=== PATIENT | male | born 1975 | race Caucasian/White ===

== ENCOUNTER 2019-06-01 16:07 | Inpatient (IN) | payer OTHER ==
[~2019-06-01] VITALS: Ht 190.5 cm; Wt 111.4 kg
[~2019-06-01 16:07] MED LIST: ADDERALL 30 MG30 MG PO; ANDROGEL5 GM; LANOXIN125 MCG PO; PRINIVIL10 MG PO
[2019-06-01 16:36] VITALS: BP 142/84
[2019-06-01 16:38] LABS: BASOPHILS 0.1 % (0-2); EOSINOPHILS 0.9 % (0-7); HEMATOCRIT 42.9 % (42.0-54.0); HEMOGLOBIN 15.1 g/dL (13.5-17.5); IMMATURE GRANULOCYTES 0.3 % (0-5); LYMPHOCYTES 31.2 % (15-50); MCH 32.4 pg (26.0-34.0); MCHC 35.2 g/dL (31.0-37.0); MCV 92.1 fL (80.0-100.0); MEAN PLATELET VOLUME 9.1 fL (7.4-10.4); MONOCYTES 10.4 % (2-11); NEUTROPHILS 57.1 % (40-80); PLATELET COUNT 271 10x3/uL (130-400); RBC 4.66 10x6/uL (4.20-6.10); RDW 12.9 % (11.5-14.5); WBC 7.5 10x3/uL (4.8-10.8)
[2019-06-01 16:58] LABS: ALBUMIN 3.8 g/dL (3.4-5.0); ALKALINE PHOSPHATASE 64 U/L (46-116); ALT (SGPT) 41 U/L (10-68); BILIRUBIN - TOTAL 0.17 mg/dL (0.2-1.3); CALC OSMOLALITY 282 mosm/kg (275-300); CALCIUM 8.9 mg/dL (8.5-10.1); CARBON DIOXIDE 28.4 mmol/L (21.0-32.0); CHLORIDE - SERUM 104 mmol/L (98-107); CREATININE - SERUM 1.2 mg/dL (0.6-1.3); GLUCOSE 112 mg/dL (74-106); POTASSIUM - SERUM 3.8 mmol/L (3.5-5.1); PROTEIN - SERUM 7.2 g/dL (6.4-8.2); SODIUM 141 mmol/L (136-145); UREA NITROGEN 14 mg/dL (7-18); eGFR NON AFRICAN AMERICAN 70 mL/min (90-120)
[2019-06-01 17:07] VITALS: BP 111/87
[2019-06-01 17:08] LABS: CKMB 2.1 U/L (0.0-3.6); CREATINE KINASE 235 UL (21-232); PRO BNP 13 pg/mL (0-125); TROPONIN-I < 0.017 ng/mL (0.000-0.060)
[2019-06-01 17:38] VITALS: BP 91/56
--- NOTE | 2019-06-01 17:38 | NUR ---
RESTING IN BED. CONT TO C/O "CHEST PRESSURE, HEAVY, NOT REALLY PAIN" VSS
[2019-06-01 18:53] VITALS: BP 123/75
--- NOTE | 2019-06-01 18:55 | NUR ---
REPORT TO BOBBI ELIAS BY SBAR FORMAT
--- NOTE | 2019-06-01 19:04 | NUR ---
TRANSPORTED TO ROOM #2123, CONDITION STABLE
--- NOTE | 2019-06-01 19:31 | NUR ---
RECIEVED TO ROOM 2122 FROM ER VIA . PT A&O. RESPERATIONS EVEN ON RA. VITALS STABLE. IV TO LEFT ARM SL, IV SITE CLEAN AND DRY. HISTORY AND MED REC OBTAINED. PLACED ON TELEMETRY, 63 SR PER MT. OFFERED PT SANDWHICH TRAY AND DRINK, PT DECLINED SANDWHICH BUT REQUESTED [place]. CURRENTLY DENIES PAIN OR NEEDS, BED LOW, CL IN REACH.
[2019-06-01 19:47] VITALS: BP 116/51; Ht 190.5 cm; Wt 111.4 kg
[2019-06-01 20:00] VITALS: BP 116/51
--- NOTE | 2019-06-01 20:23 | NUR ---
PTS MOTHER AT BED SIDE, BROUGHT PT FOOD.
--- NOTE | 2019-06-01 21:47 | NUR ---
ICE CREAM GIVEN AT PT REQUEST, PT CURRENTLY DENIES PAIN OR OTHER NEEDS.
--- NOTE | 2019-06-01 22:46 | NUR ---
MORPOHINE 6 MG GIVEN FOR C/O PAIN TO CHEST. RATES PAIN AT A 7 ON PAIN SCALE.
[2019-06-01 23:30] LABS: CKMB 1.8 U/L (0.0-3.6); CREATINE KINASE 209 UL (21-232); TROPONIN-I < 0.017 ng/mL (0.000-0.060)
[2019-06-02] VITALS: BP 112/66
--- NOTE | 2019-06-02 01:52 | NUR ---
RESTING WITH EYES CLOSED, RESPERATIONS EVEN, NO S/S DISTRESS NOTED.
[2019-06-02 04:00] VITALS: BP 128/51
[2019-06-02 05:52] LABS: CKMB 1.6 U/L (0.0-3.6); CREATINE KINASE 188 UL (21-232)
[2019-06-02 06:17] LABS: TROPONIN-I < 0.017 ng/mL (0.000-0.060)
--- NOTE | 2019-06-02 08:05 | NUR ---
GAVE 6MG OF MORPHINE FOR PAIN LEVEL OF 7/10. PT IN BED, WATCHING TV, A/O X4, RESP EVEN AND NONLABORED ON RA. LT AC IV SL. PT DENIES ANY OTHER NEEDS AT THIS TIME, CALL LIGHT IN REACH, FAMILY AT BEDSIDE, NAD NOTED, WILL CONITNUE TO MONIOTOR.
--- NOTE | 2019-06-02 08:18 | NUR ---
PT TO CT VIA WHEELCHAIR.
--- NOTE | 2019-06-02 08:33 | NUR ---
PT BACK FROM CT, RATES PAIN LEVEL 7/10. PT DENIES ANY OTHER NEEDS AT THIS TIME. CALL LIGHT IN REACH. NAD NOTED, WILL CONTINUE TO MONITOR.
[2019-06-02 10:52] VITALS: BP 120/65
--- NOTE | 2019-06-02 12:48 | NUR ---
GAVE 6MG OF MORPHINE FOR PAIN LEVEL OF 7/10. PT DENIES ANY OTHER NEEDS AT THIS TIME. CALL LIGHT IN REACH, NAD NOTED, WILL CONTINUE TO MONITOR.
[2019-06-02 13:48] VITALS: BP 114/72
--- NOTE | 2019-06-02 14:09 | NUR ---
CALLED ALMAS Gao APN WITH CARDIOLOGY, INFORMED HER THAT A CTA OF THE CHEST WAS ALREADY DONE THIS AM AND THE RESULTS WERE NEGATIVE. ASKED ALMAS IF PT COULD HAVE SOMETHING TO EAT, ALMAS STATED TO GO AHEAD AND GET PT SOMETHING TO EAT.
--- NOTE | 2019-06-02 15:52 | NUR ---
WENT TO CHECK ON PT TO SEE IF HE STILL HAD CHEST PAIN. PT RATED PAIN LEVEL TO CHEST 7/10, WAS GOING TO GIVE HIM ANOTHER NITRO AND PT STATED GIVE ME THE MORHINE INSTEAD. GAVE 6MG OF MORPHINE AT THIS TIME. PT DENIES ANY OTHER NEEDS AT THIS TIME. CALL LIGHT IN REACH, NAD NOTED.
[2019-06-02 16:10] VITALS: BP 110/60
--- NOTE | 2019-06-02 19:07 | NUR ---
RECEIVED BEDSIDE REPORT. PATIENT IS ALERT AND ORIENTED, RESTING COMFORTABLY IN BED. RESPIRATIONS ARE EVEN AND UNLABORED. NO S/S OF DISTRESS. NO C/O PAIN. CALL LIGHT WITHIN REACH. WILL CPOC.
[2019-06-02 20:00] VITALS: BP 109/62
[2019-06-03] VITALS: BP 115/66
[2019-06-03 04:30] VITALS: BP 110/48
--- NOTE | 2019-06-03 07:32 | NUR ---
NOTIFIED PT ABOUT NEEDING TO BE NPO FOR STRESS TEST TODAY THIS AFTERNOON. PT VERBALIZED UNDERSTANDING. PT DENIES ANY NEEDS AT THIS TIME. CALL LIGHT IN REACH, NAD NOTED, WILL CONTINUE TO MONITOR.
[2019-06-03 08:00] VITALS: BP 130/70
[2019-06-03 12:00] VITALS: BP 144/74
--- NOTE | 2019-06-03 14:11 | NUR ---
PT RESTING COMFORTABLY WITH EYES CLOSED, FAMILY AT BEDSIDE, CALL LIGHT IN REACH, NAD NOTED.
--- NOTE | 2019-06-03 14:59 | NUR ---
PT TO NUCLEAR MED FOR STRESS TEST VIA WHEELCHAIR, NAD NOTED.
--- NOTE | 2019-06-03 15:13 | MORECARE ---
CASE MANAGEMENT DISCHARGE SUMMARY PATIENT: RO LEIJA UNIT: [id number] ADM DATE: 06/02/19 AGE: 43 : 75 SEX: M ROOM/BED: D.2123 AUTHOR: ANGÉLICA CHACON PHYSICIAN: REFERRING PHYSICIAN: MIHIR KENDRICK M.D. DATE OF SERVICE: 06/03/19 Discharge Plan Patient Name: RO LEIJ[facility] [facility] 1975 Planned Disposition: Home Anticipated Discharge Date: Discharge Date: Expected LOS: Initial Reviewer: [email or web address] Initial Review Date: 06/03/2019 Generated: 06/03/19 4:13 pm Patient Name: RO LEIJA Page [id number] at 1513 All edits/amendments must be made on the electronic document DICTATION DATE: 06/03/191512 SALES DEVELOPMENT ASSOCIATE: KIM 06/03/191512 RPT#: [id number] DC DATE: STATUS: ADM IN [facility] [address] [place] [address] END OF REPORT
--- NOTE | 2019-06-03 15:22 | MORECARE ---
CASE MANAGEMENT DISCHARGE SUMMARY PATIENT: RO LEIJA UNIT: [id number] ADM DATE: 06/02/19 AGE: 43 : 75 SEX: M ROOM/BED: D.2123 AUTHOR: ANGÉLICA CHACON PHYSICIAN: REFERRING PHYSICIAN: MIHIR KENDRICK M.D. DATE OF SERVICE: 06/03/19 Discharge Plan Patient Name: RO LEIJA Facility: [facility]:[place] : 1975 Planned Disposition: Home Anticipated Discharge Date: Discharge Date: Expected LOS: Initial Reviewer: [email or web address] Initial Review Date: 06/03/2019 Generated: 06/03/19 4:21 pm Comments DCP- Discharge Planning Updated by [email or web address]: Cherry Napoles on 06/03/19 2:[address] Patient Name: RO LEIJA Admission Status: ER Accout number: [id number] Admission Date: 06-02-2019 : 1975 Admission Diagnosis: Attending: MIHIR KENDRICK Current LOS: 1 Anticipated DC Date: Planned Disposition: Home Primary Insurance: UNINSURED DISCOUNT PLAN Discharge Planning Comments: CM MET WITH PATIENT AFTER OBTAINING VERBAL CONSENT. STATES PLANS TO DISCHARGE TO HOME. DISCUSSED NEED FOR HH, REHAB OR EQUIPMENT, PATIENT STATES NO NEEDS. STATES HE HAS VA INSURANCE. I CALLED [facility] SO[facility]ING MACHINE OPERATOR TO CONFIRM AND JOSHUA STATES HE HAS [place] [facility]. CM WILL FOLLOW AND ASSIST NEEDED. Cloth Covered Helmet Puller: Cherry Napoles DCPIA - Discharge Planning Initial Assessment Updated by [email or web address]: Cherry Napoles on 06/03/19 3:14 pm * Is the patient Alert and Oriented? Yes * PCP RESEND[facility] * Pharmacy [facility] [address] * Preadmission Environment Home Alone * ADLs Independent * Equipment None * List name and contact numbers for known caregivers / representatives who currently or will assist patient after discharge: TEDDY, MOM, * Community resources currently utilized None * Additional services required to return to the preadmission environment? No * Can the patient safely return to the preadmission environment? Yes * Has this patient been hospitalized within the prior 30 days at any hospital? No Last DP export: 06/03/19 2:13 p Patient Name: RO LEIJA Page [id number] at 1522 All edits/amendments must be made on the electronic document DICTATION DATE: 06/03/191520 RN PROGRESSIVE CARE UNIT: KIM 06/03/191520 RPT#: [id number] DC DATE: STATUS: ADM IN [facility] [address] [place] [address] END OF REPORT
--- NOTE | 2019-06-03 15:30 | NUR ---
PT BACK TO ROOM. LIGHT LUNCH TRAY ORDERED FOR PT.
--- NOTE | 2019-06-03 15:40 | MORECARE ---
CASE MANAGEMENT DISCHARGE SUMMARY PATIENT: RO LEIJA UNIT: [id number] ADM DATE: 06/02/19 AGE: 43 : 75 SEX: M ROOM/BED: D.2123 AUTHOR: OSWALDODOC PHYSICIAN: REFERRING PHYSICIAN: MIHIR KENDRICK M.D. DATE OF SERVICE: 06/03/19 Discharge Plan Patient Name: RO LEIJA Facility: [facility]:[place] : 1975 Planned Disposition: Home Anticipated Discharge Date: Discharge Date: Expected LOS: Initial Reviewer: [email or web address] Initial Review Date: 06/03/2019 Generated: 06/03/19 4:40 pm Comments DCP- Discharge Planning Updated by [email or web address]: Cherry Napoles on 06/03/19 2:[address] Patient Name: RO LEIJA Admission Status: ER Accout number: [id number] Admission Date: 06-02-2019 : 1975 Admission Diagnosis: Attending: MIHIR KENDRICK Current LOS: 1 Anticipated DC Date: Planned Disposition: Home Primary Insurance: UNINSURED DISCOUNT PLAN Discharge Planning Comments: CM MET WITH PATIENT AFTER OBTAINING VERBAL CONSENT. STATES PLANS TO DISCHARGE TO HOME. DISCUSSED NEED FOR HH, REHAB OR EQUIPMENT, PATIENT STATES NO NEEDS. STATES HE HAS VA INSURANCE. I CALLED [facility] EN[facility]ONMENT[facility] HEALTH SANITARIAN TO CONFIRM AND JOSHUA STATES HE HAS [facility]. CM WILL FOLLOW AND ASSIST NEEDED. Dental Technician Metal: Cherry Napoles Appended by Cherry Napoles on 06/03/2019 15:30 CDT: I asked him if he wanted on the transfer list for the VA but he does not want to make a decision right now. We will need to call VA expeditor back when he desides. DCPIA - Discharge Planning Initial Assessment Updated by [email or web address]: Cherry Napoles on 06/03/19 3:14 pm * Is the patient Alert and Oriented? Yes * PCP [facility]ART[facility]N * Pharmacy [facility] [address] * Preadmission Environment Home Alone * ADLs Independent * Equipment None * List name and contact numbers for known caregivers / representatives who currently or will assist patient after discharge: AJ ESPINAL, * Community resources currently utilized None * Additional services required to return to the preadmission environment? No * Can the patient safely return to the preadmission environment? Yes * Has this patient been hospitalized within the prior 30 days at any hospital? No Last DP export: 06/03/19 2:22 p Patient Name: RO LEIJA Page [id number] at 1540 All edits/amendments must be made on the electronic document DICTATION DATE: 06/03/191539 PHOTOGRAPHY COLORIST: KIM 06/03/191539 RPT#: [id number] DC DATE: STATUS: ADM IN [facility] [address] [place] [address] END OF REPORT
--- NOTE | 2019-06-03 17:56 | NUR ---
OFFERED PT FLU SHOT AND PT REFUSED.
--- NOTE | 2019-06-03 18:21 | NUR ---
PROVIDED VERBAL AND WRITTEN DISCHARGE TEACHING TO PT WHO VERBALIZED UNDERSTANDING. JUST UPSET BECAUSE NOTHING WAS RESOLVED, STILL HAVING CHEST PAIN AND DOCTOR DID NOT REALLY EXPLAINED ANYTHING TO HIM, JUST ASKED HIM IF HE WANTED TO GO HOME. PT REFUSED WHEELCHAIR, LEFT UNIT VIA AMBULATORY, WITH ALL BELONGINGS, ACCOMPANIED BY MOTHER, NAD NOTED.
--- NOTE | 2019-06-04 07:08 | MORECARE ---
CASE MANAGEMENT DISCHARGE SUMMARY PATIENT: RO LEIJA UNIT: [id number] ADM DATE: 06/02/19 AGE: 43 : 75 SEX: M ROOM/BED: D.2123 AUTHOR: OSWALDODOC PHYSICIAN: REFERRING PHYSICIAN: MIHIR KENDRICK M.D. DATE OF SERVICE: 06/04/19 Discharge Plan Patient Name: RO LEIJA Facility: [facility]:[place] : 1975 Planned Disposition: Home Anticipated Discharge Date: 06/03/19 Discharge Date: 06/03/2019 Expected LOS: 1 Initial Reviewer: [email or web address] Initial Review Date: 06/03/2019 Generated: 06/04/19 8:08 am Comments DCP- Discharge Planning Updated by [email or web address]: Cherry Napoles on 06/03/19 2:[address] Patient Name: RO LEIJA Admission Status: ER Accout number: [id number] Admission Date: 06-02-2019 : 1975 Admission Diagnosis: Attending: MIHIR KENDRICK Current LOS: 1 Anticipated DC Date: Planned Disposition: Home Primary Insurance: UNINSURED DISCOUNT PLAN Discharge Planning Comments: CM MET WITH PATIENT AFTER OBTAINING VERBAL CONSENT. STATES PLANS TO DISCHARGE TO HOME. DISCUSSED NEED FOR HH, REHAB OR EQUIPMENT, PATIENT STATES NO NEEDS. STATES HE HAS VA INSURANCE. I CALLED [facility] COPYMAN TO CONFIRM AND JOSHUA STATES HE HAS [facility]. CM WILL FOLLOW AND ASSIST NEEDED. Corrective Therapist: Cherry Napoles Appended by Cherry Napoles on 06/03/2019 15:30 CDT: I asked him if he wanted on the transfer list for the VA but he does not want to make a decision right now. We will need to call VA expeditor back when he desides. DCPIA - Discharge Planning Initial Assessment Updated by [email or web address]: Cherry Napoles on 06/03/19 3:14 pm * Is the patient Alert and Oriented? Yes * PCP [facility]ART[facility]N * Pharmacy [facility] [address] * Preadmission Environment Home Alone * ADLs Independent * Equipment None * List name and contact numbers for known caregivers / representatives who currently or will assist patient after discharge: TEDDY, MOM, * Community resources currently utilized None * Additional services required to return to the preadmission environment? No * Can the patient safely return to the preadmission environment? Yes * Has this patient been hospitalized within the prior 30 days at any hospital? No Last DP export: 06/03/19 2:40 p Patient Name: RO LEIJA Page [phone] at 0708 All edits/amendments must be made on the electronic document DICTATION DATE: 06/04/19706 TOUCH UP WORKER: KIM 06/04/19706 RPT#: [id number] DC DATE:06/03/19 STATUS: DIS IN [facility] [address] [place] [address] END OF REPORT
== END 2019-06-03 18:23 | disposition home or self-care (01) | DRG 313 ==
LOC: D.ER 16:07 → D.M2 18:24 → OBSVTIME 18:31 → D.M2 06-02 13:11
PROVIDERS: Emergency Medicine; ADMIT Internal Medicine Cardiovascular Disease; ATTEND Internal Medicine Cardiovascular Disease
DX: R07.9 Chest pain, unspecified (principal); I42.9 Cardiomyopathy, unspecified; R42 Dizziness and giddiness; R53.1 Weakness

== ENCOUNTER 2019-06-06 09:10 | Emergency (ER) | payer OTHER ==
[~2019-06-06] VITALS: Ht 190.5 cm; Wt 113.6 kg
[2019-06-06 09:17] VITALS: Ht 190.5 cm; Wt 113.6 kg
[2019-06-06 09:36] LABS: BASOPHILS 0.3 % (0-2); EOSINOPHILS 1.6 % (0-7); HEMATOCRIT 46.4 % (42.0-54.0); HEMOGLOBIN 16.1 g/dL (13.5-17.5); IMMATURE GRANULOCYTES 0.1 % (0-5); MCH 32.5 pg (26.0-34.0); MCHC 34.7 g/dL (31.0-37.0); MCV 93.7 fL (80.0-100.0); MEAN PLATELET VOLUME 9.6 fL (7.4-10.4); MONOCYTES 9.6 % (2-11); NEUTROPHILS 55.4 % (40-80); PLATELET COUNT 262 10x3/uL (130-400); RBC 4.95 10x6/uL (4.20-6.10); RDW 13.2 % (11.5-14.5); WBC 6.8 10x3/uL (4.8-10.8)
[2019-06-06 09:45] LABS: APTT 26.3 SECONDS (22.8-39.4); INR 0.93 (0.85-1.17)
[2019-06-06 09:50] LABS: ALBUMIN 3.5 g/dL (3.4-5.0); ALKALINE PHOSPHATASE 67 U/L (46-116); ALT (SGPT) 27 U/L (10-68); BILIRUBIN - TOTAL 0.18 mg/dL (0.2-1.3); CALC OSMOLALITY 283 mosm/kg (275-300); CALCIUM 8.7 mg/dL (8.5-10.1); CARBON DIOXIDE 26.1 mmol/L (21.0-32.0); CHLORIDE - SERUM 107 mmol/L (98-107); GLUCOSE 120 mg/dL (74-106); POTASSIUM - SERUM 4.1 mmol/L (3.5-5.1); PROTEIN - SERUM 7.3 g/dL (6.4-8.2); SODIUM 142 mmol/L (136-145); UREA NITROGEN 13 mg/dL (7-18); eGFR NON AFRICAN AMERICAN 87 mL/min (90-120)
[2019-06-06 10:15] LABS: AMYLASE - SERUM 37 U/L (25-115); CREATINE KINASE 127 UL (21-232); LIPASE 106 U/L (73-393); MAGNESIUM - SERUM 1.6 mg/dL (1.8-2.4)
[2019-06-06 10:16] LABS: CKMB 1.5 U/L (0.0-3.6); TROPONIN-I < 0.017 ng/mL (0.000-0.060)
[2019-06-06] MEDS ORDERED: HYDROCODON-ACE1 EAC7 PO (11:30)
[2019-06-06] MEDS ORDERED: FLAGYL500 MG PO (11:30)
[2019-06-06] MEDS ORDERED: CIPRO500 MG PO (11:30)
[2019-06-06 11:51] VITALS: BP 132/93
== END 2019-06-06 11:52 | disposition home or self-care (01) ==
LOC: D.ER 09:10
PROVIDERS: Family Medicine
DX: K52.9 Noninfective gastroenteritis and colitis, unspecified (principal)